=== PATIENT | female | born 1995 | race Caucasian/White ===

== ENCOUNTER 2016-10-15 19:28 | Emergency (ER) | payer BC ==
[2016-10-15 19:41] VITALS: BP 128/91
--- NOTE | 2016-10-15 20:04 | UC ---
Palpitation/Dysrhythmia HP - HPI Summary HPI Summary: complaint of amid intermittent fluttery feeling in her chest for approx 3-4 days feels like she has a ticking in her chest laying down increases the feeling wakes up in the morning and it is gone then starts again throughout the day episodes last for 30 minutes to 3 hours the first day her left arm hurt after she had been holding a baby dur ing the day for several hours-resolved denies shortness of breath, chest pain, nausea, diaphoreis, dizziness denies feeling anxious denies fever or recent URI no new medications been on the same control for many years - History of Current Complaint Chief Complaint: UCGeneralIllness Stated Complaint: CHEST TIGHTNESS/SLIGHT TROUBLE BREATHING Time Seen by Provider: 10/15/16 19:42 Hx Obtained From: Patient Hx Last Menstrual Period: 09/30/16 Character: Fluttering Aggravating Factor(s): Position Alleviating Factor(s): Nothing - Risk Factors Pulmonary Embolism: Oral Contraceptives - Allergy/Home Medications Allergies/Adverse Reactions: Allergies Allergy/AdvReac Type Severity Reaction Status Date / Time No Known Allergies Allergy Verified 03/10/16 12:54 PMH/Surg Hx/FS Hx/Imm Hx Previously Healthy: Yes Endocrine History Of: Denies: Diabetes Cardiovascular History Of: Denies: Hypertension, Pacemaker/ICD Respiratory History Of: Reports: Asthma - SPORTS INDUCED GI/ History Of: Denies: Kidney Stones, Renal Disease - Surgical History Surgical History: Yes Surgery Procedure, Year, and Place: ADENOIDS, BILATERAL KNEE STRUCTURAL DEFECT CORRECTION AND REMOVAL OF SCREW IN LT KNEE -07/23/15 LEFT KNEE REPAIR - Family History Known Family History: Positive: None Negative: Cardiac Disease, Hypertension, Diabetes - Social History Occupation: Student Lives: With Family Alcohol Use: Rare Substance Use Type: None Smoking Status (MU): Never Smoked Tobacco Review of Systems Constitutional: Negative Skin: Negative Eyes: Negative ENT: Negative Respiratory: Negative Cardiovascular: Palpitations Gastrointestinal: Negative Genitourinary: Negative Motor: Negative Neurovascular: Negative Musculoskeletal: Negative Neurological: Negative Psychological: Negative All Other Systems Reviewed And Are Negative: Yes Physical Exam Triage Information Reviewed: Yes Appearance: No Pain Distress, Well-Nourished Vital Signs: Initial Vital Signs Temp 99.1 F 10/15/16 19:35 Pulse 103 10/15/16 19:35 Resp 20 10/15/16 19:35 BP 128/91 10/15/16 19:35 Pulse Ox 100 10/15/16 19:35 Vital Signs Reviewed: Yes Eyes: Positive: Conjunctiva Clear Palpitations Course/Dx - Course Course Of Treatment: exam completed. ECG shows NSR rate 80's. no associated symptoms with palpitations. - Differential Dx/Diagnosis Differential Diagnosis/HQI/PQRI: Panic Disorder - palpitations Provider Diagnoses: palpitations - Physician Notifications Discussed Patient Care With: Dr Kesha Bautista Time Discussed With Above Provider: 20:23 Discharge - Discharge Plan Condition: Stable Disposition: HOME Patient Education Materials: Palpitations (ED) Referrals: No Primary Care Phys,NOPCP [Primary Care Provider] - Additional Instructions: Please review your discharge instructions. You need to call your primary care provider to have a physical and further evaluation of your palpitations If your symptoms do not improve please return to urgent care or emergency room.
== END 2016-10-15 20:34 | disposition home or self-care (01) ==
LOC: UCCORT 19:28
DX: R00.2 Palpitations (principal)
CPT/HCPCS: 93005; 99211; G0463

== ENCOUNTER 2016-12-28 14:35 | Emergency (ER) | payer BC ==
[2016-12-28 15:07] VITALS: BP 117/82
[2016-12-28] MEDS ORDERED: Ketorolac INJ* 60 MG/2 ML VIAL IM ONE (15:19)
--- NOTE | 2016-12-28 15:50 | UC ---
Abdominal Pain Female HPI - HPI Summary HPI Summary: Rlq pain for 3-4 hours has had nausea and vomiting as well - History of Current Complaint Chief Complaint: UCAbdominalPain Stated Complaint: STOMACH PAINS Time Seen by Provider: 12/28/16 15:13 Hx Obtained From: Patient Hx Last Menstrual Period: 12/18/16 ?: No Onset/Duration: Sudden Onset, Lasting Hours, Still Present Timing: Constant Severity Initially: Moderate Severity Currently: Moderate Pain Intensity: 8 Pain Scale Used: 0-10 Numeric Location: Discrete At: RLQ Radiates: No Character: Cramping Aggravating Factor(s): Nothing Alleviating Factor(s): Nothing Associated Signs and Symptoms: Positive: Decreased Appetite, Nausea, Vomiting Allergies/Adverse Reactions: Allergies Allergy/AdvReac Type Severity Reaction Status Date / Time No Known Allergies Allergy Verified 12/28/16 15:07 Home Medications: Home Medications Norethindrone Acet & Eth Estra [Microgestin 1.5/30 1.5-30 mg-Mcg] 1 tab PO BEDTIME 12/28/16 [History Confirmed 12/28/16] PMH/Surg Hx/FS Hx/Imm Hx Previously Healthy: No - also has had ovarian cysts Endocrine History Of: Denies: Diabetes Cardiovascular History Of: Denies: Hypertension, Pacemaker/ICD Respiratory History Of: Reports: Asthma - SPORTS INDUCED GI/ History Of: Denies: Kidney Stones, Renal Disease - Surgical History Surgical History: Yes Surgery Procedure, Year, and Place: ADENOIDS, BILATERAL KNEE STRUCTURAL DEFECT CORRECTION AND REMOVAL OF SCREW IN LT KNEE -07/23/15 LEFT KNEE REPAIR - Family History Known Family History: Positive: None Negative: Cardiac Disease, Hypertension, Diabetes - Social History Occupation: Employed Full-time Lives: With Family Alcohol Use: Occasionally Substance Use Type: None Smoking Status (MU): Never Smoked Tobacco Review of Systems Constitutional: Negative Skin: Negative Eyes: Negative ENT: Negative Respiratory: Negative Cardiovascular: Negative Gastrointestinal: Abdominal Pain - rlq, Vomiting Genitourinary: Negative Motor: Negative Neurovascular: Negative Musculoskeletal: Negative Neurological: Negative Psychological: Negative All Other Systems Reviewed And Are Negative: Yes Physical Exam Triage Information Reviewed: Yes Appearance: Well-Nourished, Ill-Appearing, Pain Distress Vital Signs: Initial Vital Signs Temp 97.7 F 12/28/16 14:56 Pulse 94 12/28/16 14:56 Resp 14 12/28/16 14:56 BP 117/82 12/28/16 14:56 Pulse Ox 100 12/28/16 14:56 Vital Signs Reviewed: Yes Eye Exam: Normal Eyes: Positive: Conjunctiva Clear ENT Exam: Normal ENT: Positive: Normal ENT inspection, TMs normal. Negative: Nasal congestion, Nasal drainage, Tonsillar swelling, Tonsillar exudate, Trismus, Muffled/hoarse voice Dental Exam: Normal Neck exam: Normal Neck: Positive: Supple, Nontender Respiratory Exam: Normal Respiratory: Positive: Chest non-tender, Lungs clear, Normal breath sounds, No respiratory distress, No accessory muscle use Cardiovascular Exam: Normal Cardiovascular: Positive: RRR, No Murmur, Pulses Normal, Brisk Capillary Refill Abdominal Exam: Normal Abdomen Description: Positive: No Organomegaly, Soft, McBurney's Point Tenderness. Negative: CVA Tenderness (R), CVA Tenderness (L) Bowel Sounds: Positive: Present Musculoskeletal Exam: Normal Musculoskeletal: Positive: Strength Intact, ROM Intact, No Edema Neurological Exam: Normal Neurological: Positive: Alert, Muscle Tone Normal Psychological Exam: Normal Skin Exam: Normal Diagnostics - Laboratory Diagnostic Studies Completed/Ordered: urine--- +blood, ketones, uriobili, upreg (-) Abd Pain Female Course/Dx - Course Course Of Treatment: NPO-transfer to [facility] for further care - Differential Dx/Diagnosis Differential Diagnosis: Appendicitis, Ovarian Cyst, Urinary Tract Infection, Other - ovarian torsion Provider Diagnoses: RLQ pain - Physician Notification/Consults Discussed Patient Care With: Jaqueline Johnston PINION SORTER Time Discussed With Above Provider: 15:40 Instructed by Provider To: Transfer Discharge - Discharge Plan Condition: Fair Disposition: AGAINST MEDICAL ADVICE
== END 2016-12-28 15:37 | disposition left against medical advice (07) ==
LOC: UCCORT 14:35
DX: R10.31 Right lower quadrant pain (principal)
CPT/HCPCS: 81003; 84702; 96372; 99212; G0463; J1885

== ENCOUNTER 2017-04-04 13:51 | Emergency (ER) | payer BC ==
[2017-04-04 14:25] VITALS: BP 113/67
--- NOTE | 2017-04-04 14:40 | UC ---
Knee Pain HPI - HPI Summary HPI Summary: 21 YEAR OLD FEMALE WITH A HISTORY OF BILATERAL KNEE DISLOCATION/SUBLUXATION PRESENTS WITH COMPLAINS OF LEFT KNEE PAIN. - History of Current Complaint Chief Complaint: UCLowerExtremity Stated Complaint: LEFT KNEE INJURY Time Seen by Provider: 04/04/17 14:39 Hx Obtained From: Patient Hx Last Menstrual Period: 03/15/17 Onset/Duration: Sudden Onset Severity Initially: Moderate Severity Currently: Moderate Pain Scale Used: 0-10 Numeric - 5 Character: Sharp, Aching Aggravating Factor(s): Movement Alleviating Factor(s): Rest, Position Associated Signs And Symptoms: Positive: Swelling Able to Bear Weight: Yes - Allergies/Home Medications Allergies/Adverse Reactions: Allergies Allergy/AdvReac Type Severity Reaction Status Date / Time No Known Allergies Allergy Verified 04/04/17 14:25 Home Medications: Home Medications NK [No Home Medications Reported] 04/04/17 [History Confirmed 04/04/17] PMH/Surg Hx/FS Hx/Imm Hx Previously Healthy: Yes - Surgical History Surgical History: Yes Surgery Procedure, Year, and Place: ADENOIDS, BILATERAL KNEE STRUCTURAL DEFECT CORRECTION AND REMOVAL OF SCREW IN LT KNEE -07/23/15 LEFT KNEE REPAIR. Appy - Family History Known Family History: Positive: None Negative: Cardiac Disease, Hypertension, Diabetes - Social History Alcohol Use: Occasionally Substance Use Type: None Smoking Status (MU): Never Smoked Tobacco Review of Systems Constitutional: Negative Skin: Negative Eyes: Negative ENT: Negative Respiratory: Negative Cardiovascular: Negative Gastrointestinal: Negative Genitourinary: Negative Motor: Negative Neurovascular: Negative Musculoskeletal: Other: - LEFT KNEE PAIN/SWELLING Neurological: Negative Psychological: Negative All Other Systems Reviewed And Are Negative: Yes Physical Exam Triage Information Reviewed: Yes Vital Signs: Initial Vital Signs Temp 37.0 C 04/04/17 14:20 Pulse 85 04/04/17 14:20 Resp 16 04/04/17 14:20 BP 113/67 04/04/17 14:20 Pulse Ox 100 04/04/17 14:20 Eye Exam: Normal ENT Exam: Normal Dental Exam: Normal Neck exam: Normal Neck: Positive: 1 Respiratory Exam: Normal Cardiovascular Exam: Normal Abdominal Exam: Normal Musculoskeletal: Positive: Other: - LEFT KNEE PAIN/SWELLING Neurological Exam: Normal Psychological Exam: Normal Skin Exam: Normal Knee Pain Course/Dx - Differential Dx/Diagnosis Provider Diagnoses: left knee swelling/pain Discharge - Discharge Plan Condition: Stable Disposition: HOME Patient Education Materials: Knee Pain (ED) Referrals: No Primary Care Phys,NOPCP [Medical Doctor] -
--- NOTE | 2017-04-04 15:20 | RAD ---
HISTORY: Left knee subluxation COMPARISONS: July 14, 2008 VIEWS: 4, Frontal internal rotation, external rotation, outlet, and axillary views FINDINGS: BONE DENSITY: Normal. BONES: There is postsurgical change to the proximal tibia, distal fibula, and to the patella. JOINTS: There is no arthropathy. There is no suprapatellar joint effusion or lipohemarthrosis. ALIGNMENT: There is no dislocation. SOFT TISSUES: Unremarkable. OTHER FINDINGS: None. IMPRESSION: POSTSURGICAL CHANGE. NO ACUTE OSSEOUS INJURY. IF SYMPTOMS PERSIST, RECOMMEND REPEAT IMAGING.
== END 2017-04-04 15:29 | disposition home or self-care (01) ==
LOC: UCCORT 13:51
DX: M25.462 Effusion, left knee (principal)
CPT/HCPCS: 99211; G0463

== ENCOUNTER 2017-05-01 12:15 | Emergency (ER) | payer BC ==
[2017-05-01 15:10] VITALS: BP 121/79
--- NOTE | 2017-05-01 16:25 | UC ---
Throat Pain/Nasal Jude HPI - HPI Summary HPI Summary: 21 female presents to with complaints of sinus pressure, nasal congestion for the past couple of weeks. She thought at first it was allergies however it has seemed to worsen over the past week. She has not taken any medication other than some cold and sinus in the beginning of her symptoms. States she feels she has a lot of congestion she is unable to get out. Nothing recent. States she gets sinus infections all the time. Denies headache, sore throat, ear pain and fever/chills. No other complaints at this time. No PMHx. - History of Current Complaint Chief Complaint: UCRespiratory Stated Complaint: COLD/SINUS Time Seen by Provider: 05/01/17 15:20 Hx Obtained From: Patient Hx Last Menstrual Period: 04/19/17 Onset/Duration: Sudden Onset, Lasting Weeks, Still Present, Worse Since Severity: Moderate Pain Intensity: 1 Pain Scale Used: 0-10 Numeric Cough: Nonproductive - intermittent and rare Associated Signs & Symptoms: Positive: Sinus Discomfort, Nasal Discharge Related History: Seasonal Allergies - Allergies/Home Medications Allergies/Adverse Reactions: Allergies Allergy/AdvReac Type Severity Reaction Status Date / Time No Known Allergies Allergy Verified 05/01/17 15:04 PMH/Surg Hx/FS Hx/Imm Hx - Additional Past Medical History Additional PMH: Denies DM, HTN. Admits to exercise induced asthma - Surgical History Surgical History: Yes Surgery Procedure, Year, and Place: ADENOIDS, BILATERAL KNEE STRUCTURAL DEFECT CORRECTION AND REMOVAL OF SCREW IN LT KNEE -07/23/15 LEFT KNEE REPAIR. Appy - Family History Known Family History: Positive: None Negative: Cardiac Disease, Hypertension, Diabetes - Social History Alcohol Use: Occasionally Substance Use Type: None Smoking Status (MU): Never Smoked Tobacco Review of Systems Constitutional: Negative ENT: Nasal Discharge, Sinus Congestion, Sinus Pain/Tenderness Respiratory: Negative Cardiovascular: Negative Gastrointestinal: Negative Neurological: Negative All Other Systems Reviewed And Are Negative: Yes Physical Exam Triage Information Reviewed: Yes Appearance: Well-Appearing, No Pain Distress, Well-Nourished Vital Signs: Initial Vital Signs Temp 98.7 F 05/01/17 15:04 Pulse 78 05/01/17 15:04 Resp 18 05/01/17 15:04 BP 121/79 05/01/17 15:04 Pulse Ox 100 05/01/17 15:04 Vital Signs Reviewed: Yes Eyes: Positive: Conjunctiva Clear ENT: Positive: Normal ENT inspection, Hearing grossly normal, Pharynx normal, Nasal congestion, TMs normal. Negative: Tonsillar swelling, Tonsillar exudate Dental: Positive: Percussion Tenderness @ - maxillary. Negative: Cervical Lymphadenopathy Neck: Positive: Supple, Nontender Respiratory: Positive: Chest non-tender, Lungs clear, Normal breath sounds, No respiratory distress, No accessory muscle use. Negative: Rhonchi, Stridor, Wheezing Cardiovascular: Positive: RRR, No Murmur, Pulses Normal, Brisk Capillary Refill Musculoskeletal: Positive: Strength Intact, ROM Intact Neurological: Positive: Alert Skin Exam: Normal Throat Pain/Nasal Course/Dx - Course Course Of Treatment: due to patient's complaint of symptoms and length of symptoms will treat symptomatically at first. told to hold off on antibiotic for atleast a week and see if other medication helps first. patient agrees and understands. competent. fluids, rest, hot compresses/showers, ibuprofen. flonase , saline rinses and claritin. aware of worsening signs and symptoms to watch out for. Follow up PCP. - Differential Dx/Diagnosis Differential Diagnosis/HQI/PQRI: Influenza, Laryngitis, Otitis Media, Pharyngitis, Sinusitis, URI Provider Diagnoses: acute sinusitis Discharge - Discharge Plan Condition: Stable Disposition: HOME Patient Education Materials: Sinusitis (ED), Warm Compress or Soak (ED) Referrals: Nael Cruz MD [Primary Care Provider] - Additional Instructions: Use prescribed flonase as directed while symptoms last. Recommend using saline rinses or nasal sprays. Take claritin or zyrtec over the counter for the next 7-14 days. Gargle with salt water. Increase fluid intake. Recommend taking mucinex and using hot compresses/ taking hot showers. Ibuprofen for headache and discomfort. If symptoms worsen or do not improve try taking antibiotic prescribed to you as directed. Give it 3 -5 days with symptomatic measures before starting antibiotic. Take with food. Follow up PCP. Return if symptoms worsen or do not improve in 2-3 weeks.
== END 2017-05-01 16:32 | disposition home or self-care (01) ==
LOC: UCCORT 12:15
DX: J01.90 Acute sinusitis, unspecified (principal)
CPT/HCPCS: 99212; G0463

== ENCOUNTER 2017-07-09 11:27 | Emergency (ER) | payer BC ==
[2017-07-09 13:05] VITALS: BP 120/69
--- NOTE | 2017-07-09 14:38 | UC ---
Throat Pain/Nasal Jude HPI - HPI Summary HPI Summary: SORE THROAT, SWOLLEN TONSILS, BODY ACHES, HEADACHE, CHILLS FOR FOUR DAYS - History of Current Complaint Chief Complaint: UCGeneralIllness Stated Complaint: ST Time Seen by Provider: 07/09/17 13:11 Hx Obtained From: Patient Hx Last Menstrual Period: ~06/12/17 Onset/Duration: Gradual Onset, Lasting Days Severity: Moderate Pain Intensity: 8 Pain Scale Used: 0-10 Numeric Cough: None Associated Signs & Symptoms: Positive: Hoarseness, Fever - Epiglottits Risk Factors Epiglottis Risk Factors: Negative - Allergies/Home Medications Allergies/Adverse Reactions: Allergies Allergy/AdvReac Type Severity Reaction Status Date / Time No Known Allergies Allergy Verified 07/09/17 13:01 PMH/Surg Hx/FS Hx/Imm Hx Previously Healthy: Yes - Surgical History Surgical History: Yes Surgery Procedure, Year, and Place: ADENOIDS, BILATERAL KNEE STRUCTURAL DEFECT CORRECTION AND REMOVAL OF SCREW IN LT KNEE -07/23/15 LEFT KNEE REPAIR. APPENDECTOMY - 01/07/17 - Family History Known Family History: Positive: None - Pt denies FMHX Negative: Cardiac Disease, Hypertension, Diabetes - Social History Occupation: Employed Full-time Lives: With Family Alcohol Use: Occasionally Substance Use Type: None Smoking Status (MU): Never Smoked Tobacco - Immunization History Most Recent Influenza Vaccination: Not the Season Vaccination Up to Date: Yes Review of Systems Constitutional: Chills Skin: Negative Eyes: Negative ENT: Sore Throat Respiratory: Negative Cardiovascular: Negative Gastrointestinal: Negative Genitourinary: Negative Motor: Negative Neurovascular: Negative Musculoskeletal: Myalgia Neurological: Headache Psychological: Negative Is Patient Immunocompromised?: No All Other Systems Reviewed And Are Negative: Yes Physical Exam Triage Information Reviewed: Yes Appearance: Well-Appearing, No Pain Distress, Well-Nourished Vital Signs: Initial Vital Signs Temp 98.8 F 07/09/17 12:59 Pulse 96 07/09/17 12:59 Resp 16 07/09/17 12:59 BP 120/69 07/09/17 12:59 Pulse Ox 100 07/09/17 12:59 Vital Signs Reviewed: Yes Eye Exam: Normal ENT: Positive: Pharyngeal erythema, TM dull, Tonsillar swelling, Tonsillar exudate Dental Exam: Normal Neck exam: Normal Respiratory Exam: Normal Respiratory: Positive: Chest non-tender, Lungs clear, Normal breath sounds, No respiratory distress, No accessory muscle use Cardiovascular Exam: Normal Cardiovascular: Positive: RRR, No Murmur, Pulses Normal, Brisk Capillary Refill Abdominal Exam: Normal Abdomen Description: Positive: Nontender, No Organomegaly Musculoskeletal Exam: Normal Neurological Exam: Normal Psychological Exam: Normal Skin Exam: Normal Throat Pain/Nasal Course/Dx - Differential Dx/Diagnosis Differential Diagnosis/HQI/PQRI: Pharyngitis, Sinusitis, Tonsillitis, URI Provider Diagnoses: STREP TONSILITIS Discharge - Discharge Plan Condition: Stable Disposition: HOME Prescriptions: Amoxicillin PO (*) [Amoxicillin 875 MG (*)] 875 mg PO BID #20 tab Patient Education Materials: Strep Throat (ED) Forms: *Work Release Referrals: [facility] PHYSICIAN REFERRAL [Outside] No Primary Care Phys,NOPCP [Primary Care Provider] -
== END 2017-07-09 14:04 | disposition home or self-care (01) ==
LOC: UCCORT 11:27
DX: J03.00 Acute streptococcal tonsillitis, unspecified (principal)
CPT/HCPCS: 87651; 99212; G0463

== ENCOUNTER 2017-07-11 13:39 | Emergency (ER) | payer BC ==
[2017-07-11 14:39] VITALS: BP 127/75
--- NOTE | 2017-07-11 15:09 | UC ---
Pediatric Resp HPI - HPI Summary HPI Summary: dx with strep on wednesday and placed on amoxicillin - took her 2 doses wed and wednesday and today in the morning. now having c/p midsternal with radiation down both arm. throat feeling better but face flushed and very uncomfortable - stop abx today - History Of Current Complaint Chief Complaint: UCGeneralIllness Stated Complaint: CHEST PAIN, SOB Time Seen by Provider: 07/11/17 15:03 Hx Obtained From: Patient Onset/Duration: Sudden Onset Timing: Constant Severity Initially: Moderate Severity Currently: Moderate Location: Chest Aggravating Factor(s): URI Alleviating Factor(s): Antibiotics Associated Signs And Symptoms: Chest Pain, Sore Throat - Risk Factor(s) Status Asthmaticus Risk Factor(s): Negative Severe RSV Risk Factor(s): Negative Foreign Body Aspiration Risk Factor(s): Negative - Allergies/Home Medications Allergies/Adverse Reactions: Allergies Allergy/AdvReac Type Severity Reaction Status Date / Time Amoxicillin Allergy Severe esophageal Verified 07/11/17 16:29 stricture Past Medical History Previously Healthy: Yes Respiratory History: Yes: Asthma - SPORTS INDUCED Chronic Illness History: No: Diabetes Review Of Systems Eyes: Negative ENT: Throat Pain Cardiovascular: Other - chest pain with radiation down both arms Respiratory: Negative Gastrointestinal: Negative Genitourinary: Negative Musculoskeletal: Negative Skin: Negative Neurological: Negative Psychological: Negative All Other Systems Reviewed And Are Negative: Yes Physical Exam Triage Information Reviewed: Yes Vital Signs: Initial Vital Signs Temp 98 F 07/11/17 14:34 Pulse 97 07/11/17 14:34 Resp 18 07/11/17 14:34 BP 127/75 07/11/17 14:34 Pulse Ox 100 07/11/17 14:34 Appearance: Pain Distress Eyes: Positive: Normal ENT: Positive: Pharyngeal erythema Neck: Positive: Supple Respiratory: Positive: Chest non-tender, Lungs clear, Normal breath sounds Cardiovascular: Positive: Normal Abdomen Description: Positive: Nontender Bowel Sounds: Present Musculoskeletal: Positive: Normal Neurological: Positive: Normal Psychological: Positive: Normal Pediatric Resp Course/Dx - Course Course Of Treatment: EKG ordered - NSR HR 92 - negative. chest xray ordered - reading not back yet pt doesnt want to wait will call her at home with results - ok with this - called pt at home to let her know cxray was negative. stop amoxicillin start ryanpasylwia discussed use - take full course. increase fluid intake daily to prevent dehydration. ibuprofen tabs 600mg po every 6 hours prn pain/temp. f/u pcp in 1 week if symptoms not resolving - Differential Dx/Diagnosis Provider Diagnoses: esophageal stricture. strep throat Discharge - Discharge Plan Condition: Stable Disposition: HOME Prescriptions: Azithromycin TAB* [Zithromax TAB (Z-DONNA) 250 mg #6 tabs] 250 mg PO DAILY 5 Days #6 tab Patient Education Materials: Strep Throat (ED), Esophageal Stricture (ED) Referrals: No Primary Care Phys,NOPCP [Primary Care Provider] - [facility] PHYSICIAN REFERRAL [Outside] - 1 Week
--- NOTE | 2017-07-11 16:29 | RAD ---
INDICATION: Chest pain and shortness of breath COMPARISON: Most recent comparison chest x-ray September 24, 2008 TECHNIQUE: PA and lateral views of the chest were obtained. FINDINGS: The heart and mediastinum are normal in size and contour. The lungs are grossly clear. There is no evidence of large pleural effusion. Visualized bones are normal for the patient's age. There is no radiographic evidence of free air beneath the diaphragm IMPRESSION: No radiographic evidence of acute cardiopulmonary disease.
== END 2017-07-11 16:26 | disposition home or self-care (01) ==
LOC: UCCORT 13:39
DX: K22.2 Esophageal obstruction (principal); J02.0 Streptococcal pharyngitis; J45.990 Exercise induced bronchospasm; Z88.1 Allergy status to other antibiotic agents
CPT/HCPCS: 71020; 93005; 99212; G0463

== ENCOUNTER 2017-09-09 15:51 | Emergency (ER) | payer BC ==
[2017-09-09 18:26] VITALS: BP 120/76
--- NOTE | 2017-09-09 18:47 | UC ---
HPI Febrile Illness - HPI Summary HPI Summary: 22 year old female with cough. ONSET TWO DAYS AGO WITH SINUS CONGESTION, BODY ACHES.DRY COUGH.HEADACHE. NO SORE THROAT. FELT FEVERISH TWO DAYS AGO. NO N/V/D [ End ] - History of Current Complaint Chief Complaint: UCRespiratory Time Seen by Provider: 09/09/17 18:30 Hx Obtained From: Patient Hx Last Menstrual Period: 09/03/17 Timing: Constant Initial Severity: Moderate Current Severity: Moderate Pain Intensity: 5 - Allergy/Home Medications Allergies/Adverse Reactions: Allergies Allergy/AdvReac Type Severity Reaction Status Date / Time MS Amoxicillin [Amoxicillin] Allergy Severe esophageal Verified 09/09/17 18:19 stricture Home Medications: Home Medications Ibuprofen TAB* [Advil TAB*] 400 mg PO Q6H PRN 09/09/17 [History Confirmed ] Norgestimate-Ethinyl Estradiol [Trinessa 0.18/0.215/0.25 mg-35 Mcg] 1 tab PO DAILY 09/09/17 [History Confirmed 09/09/17] PMH/Surg Hx/FS Hx/Imm Hx Previously Healthy: Yes - Surgical History Surgical History: Yes Surgery Procedure, Year, and Place: ADENOIDS, BILATERAL KNEE STRUCTURAL DEFECT CORRECTION AND REMOVAL OF SCREW IN LT KNEE -07/23/15 LEFT KNEE REPAIR. APPENDECTOMY - 01/07/17. LEFT KNEE SURGERY REPAIR-Jul - Family History Known Family History: Positive: None - Pt denies FMHX Negative: Cardiac Disease, Hypertension, Diabetes - Social History Occupation: Employed Full-time, Student Lives: With Family Alcohol Use: Rare Substance Use Type: None Smoking Status (MU): Never Smoked Tobacco - Immunization History Most Recent Influenza Vaccination: Not the Season Vaccination Up to Date: Yes Review of Systems Constitutional: Fever, Chills, Fatigue ENT: Sore Throat, Nasal Discharge Respiratory: Cough Musculoskeletal: Myalgia Neurological: Headache Is Patient Immunocompromised?: No All Other Systems Reviewed And Are Negative: Yes Physical Exam Triage Information Reviewed: Yes Appearance: Well-Appearing, No Pain Distress, Well-Nourished Vital Signs: Initial Vital Signs Temp 98 F 09/09/17 18:20 Pulse 85 09/09/17 18:20 Resp 20 09/09/17 18:20 BP 120/76 09/09/17 18:20 Pulse Ox 100 09/09/17 18:20 Vital Signs Reviewed: Yes Eye Exam: Normal ENT Exam: Normal ENT: Positive: Pharynx normal, Nasal congestion, TMs normal Dental Exam: Normal Neck exam: Normal Neck: Positive: 1 Respiratory Exam: Normal Cardiovascular Exam: Normal Musculoskeletal Exam: Normal Neurological Exam: Normal Psychological Exam: Normal Skin Exam: Normal Course/Dx - Course Course Of Treatment: neg flu. still viral like - Diagnoses Clinic Provider Diagnoses: URI Discharge - Discharge Plan Condition: Good Disposition: HOME Prescriptions: Benzonatate [TESSALON 200 MG CAP] 200 mg PO TID PRN #20 cap PRN Reason: Cough Patient Education Materials: Upper Respiratory Infection (ED) Forms: *Work Release Referrals: Nael Cruz MD [Primary Care Provider] - 4 Days Additional Instructions: You had a negative flu test today .
== END 2017-09-09 19:15 | disposition home or self-care (01) ==
LOC: UCCORT 15:51
DX: J06.9 Acute upper respiratory infection, unspecified (principal)
CPT/HCPCS: 87502; 99212; G0463

== ENCOUNTER 2017-12-19 18:00 | Emergency (ER) | payer OTHER ==
[2017-12-19 18:38] VITALS: BP 130/85
--- NOTE | 2017-12-19 19:03 | UC ---
Hand/Wrist HPI - HPI Summary HPI Summary: Punched concrete last night. Seen at the ER. Negative Xray. Feels like pinky is sticking. - History Of Current Complaint Chief Complaint: UCGeneralIllness Stated Complaint: RIGHT HAND INJURY Time Seen by Provider: 12/19/17 18:56 Hx Last Menstrual Period: 12/07/17 Pain Intensity: 8 Character Of Pain: Aching, Burning Aggravating Factor(s): Movement, Lifting, Flexion Alleviating Factor(s): Nothing Associated Signs And Symptoms: Positive: Bruising, Numbness/Tingling Related History: Dominant Hand Right - Risk Factors Compartment Syndrome Risk Factors: Paresthesias - Allergies/Home Medications Allergies/Adverse Reactions: Allergies Allergy/AdvReac Type Severity Reaction Status Date / Time amoxicillin Allergy Anaphylatic Verified 12/19/17 18:31 Shock PMH/Surg Hx/FS Hx/Imm Hx Respiratory History: Asthma - Surgical History Surgical History: Yes Surgery Procedure, Year, and Place: ADENOIDS, BILATERAL KNEE STRUCTURAL DEFECT CORRECTION AND REMOVAL OF SCREW IN LT KNEE -07/23/15 LEFT KNEE REPAIR. APPENDECTOMY - 01/07/17. LEFT KNEE SURGERY REPAIR-Jul - Family History Known Family History: Negative: Cardiac Disease, Hypertension, Diabetes - Social History Occupation: Employed Full-time Lives: Dormitory/Roommates Alcohol Use: Occasionally Substance Use Type: None Smoking Status (MU): Never Smoked Tobacco Have You Smoked in the Last Year: No - Immunization History Most Recent Influenza Vaccination: Not the 2016/2017 Season Vaccination Up to Date: Yes Review of Systems Skin: Bruising Musculoskeletal: Arthralgia Is Patient Immunocompromised?: No All Other Systems Reviewed And Are Negative: Yes Physical Exam Triage Information Reviewed: Yes Appearance: Well-Appearing, Well-Nourished, Pain Distress - moderate Vital Signs: Initial Vital Signs Temp 98 F 12/19/17 18:32 Pulse 92 12/19/17 18:32 Resp 16 12/19/17 18:32 BP 130/85 12/19/17 18:32 Pulse Ox 100 12/19/17 18:32 Vital Signs Reviewed: Yes Eyes: Positive: Conjunctiva Clear Neck exam: Normal Respiratory Exam: Normal Cardiovascular Exam: Normal Musculoskeletal: Positive: 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 Neurological: Positive: Other: - numbness to sharp in the medial dorsal and ventral right hand. Psychological Exam: Normal Skin: Positive: Other - bruising over the medial right hand from the 3rd finger down. Hand/Wrist Course/Dx - Differential Dx/Diagnosis Differential Diagnosis/HQI/PQRI: Contusion, Fracture, Sprain, Strain Provider Diagnoses: Nerve contusion right hand, neuritis. Contusion right hand. Discharge - Sign-Out/Discharge Documenting (check all that apply): Discharge/Admit/Transfer - Discharge Plan Condition: Stable Disposition: HOME Prescriptions: Gabapentin CAP(*) [Neurontin 300 CAP(*)] 300 mg PO TID PRN #30 cap PRN Reason: Nerve pain Hydrocodone/Acetaminophen [Hydrocodone/Acetaminophen 5-325 mg] 1 tab PO QID PRN #20 tab MDD 4 PRN Reason: Pain - Moderate To Severe Patient Education Materials: Paresthesia (ED), Hydrocodone/Acetaminophen (By mouth), Gabapentin (By mouth) Referrals: Nael Cruz MD [Primary Care Provider] - Chayo Jacobo MD [Medical Doctor] - 1 Day (follow up for nerve injury in the right hand.) - Billing Disposition and Condition Condition: STABLE Disposition: HOME
[2017-12-19] MEDS ORDERED: HYDROcodone/ACETAMIN 5-325 MG* 1 TAB PO ONE (19:27)
== END 2017-12-19 19:39 | disposition home or self-care (01) ==
LOC: UCCORT 18:00
DX: S64.91XA Injury of unspecified nerve at wrist and hand level of right arm, initial encounter (principal); S60.221A Contusion of right hand, initial encounter; W22.8XXA Striking against or struck by other objects, initial encounter; Y92.9 Unspecified place or not applicable; Z88.3 Allergy status to other anti-infective agents
CPT/HCPCS: 99212; G0463

== ENCOUNTER 2018-02-28 14:59 | Emergency (ER) | payer OTHER ==
[2018-02-28 15:30] VITALS: BP 129/76
--- NOTE | 2018-02-28 15:55 | UC ---
Knee Pain HPI - HPI Summary HPI Summary: has a history of knee dislocations-and surgeries to tighten the knee. this morning she got out of bed and had pain left knee and felt like it dislocated and has been painful all day--getting some relief with ibuprofen - History of Current Complaint Chief Complaint: UCLowerExtremity Stated Complaint: LEFT KNEE INJURY Time Seen by Provider: 02/28/18 15:29 Hx Obtained From: Patient Hx Last Menstrual Period: 02/19/18 ?: No Onset/Duration: Sudden Onset Severity Initially: Severe Severity Currently: Moderate Location Of Injury: left knee Pain Intensity: 8 Pain Scale Used: 0-10 Numeric Character: Aching, Throbbing Aggravating Factor(s): Movement, Weight Bearing Alleviating Factor(s): OTC Meds - ibuprofen Associated Signs And Symptoms: Positive: Swelling Able to Bear Weight: Yes - Allergies/Home Medications Allergies/Adverse Reactions: Allergies Allergy/AdvReac Type Severity Reaction Status Date / Time amoxicillin Allergy Anaphylatic Verified 12/19/17 18:31 Shock Home Medications: Home Medications Ibuprofen TAB* [Motrin TAB* 800 MG] 800 mg PO Q6H PRN 02/28/18 [History Confirmed 02/28/18] PMH/Surg Hx/FS Hx/Imm Hx Previously Healthy: Yes - Surgical History Surgical History: Yes Surgery Procedure, Year, and Place: ADENOIDS, BILATERAL KNEE STRUCTURAL DEFECT CORRECTION AND REMOVAL OF SCREW IN LT KNEE -07/23/15 LEFT KNEE REPAIR. APPENDECTOMY - 01/07/17. LEFT KNEE SURGERY REPAIR-Jul - Family History Known Family History: Positive: None - Pt denies FMHX Negative: Cardiac Disease, Hypertension, Diabetes - Social History Occupation: Employed Full-time Lives: With Family Alcohol Use: Occasionally Substance Use Type: None Smoking Status (MU): Never Smoked Tobacco Have You Smoked in the Last Year: No - Immunization History Most Recent Influenza Vaccination: Not the 2016/2017 Season Vaccination Up to Date: Yes Review of Systems Constitutional: Negative Skin: Negative Eyes: Negative ENT: Negative Respiratory: Negative Cardiovascular: Negative Gastrointestinal: Negative Genitourinary: Negative Motor: Negative Neurovascular: Negative Musculoskeletal: Arthralgia - left knee pain Neurological: Negative Psychological: Negative Is Patient Immunocompromised?: No All Other Systems Reviewed And Are Negative: Yes Physical Exam Triage Information Reviewed: Yes Appearance: Well-Appearing, Well-Nourished, Pain Distress - mild Vital Signs: Initial Vital Signs Temp 98.1 F 02/28/18 15:21 Pulse 85 02/28/18 15:21 Resp 14 02/28/18 15:21 BP 129/76 02/28/18 15:21 Pulse Ox 100 02/28/18 15:21 Vital Signs Reviewed: Yes Eye Exam: Normal Eyes: Positive: Conjunctiva Clear ENT Exam: Normal ENT: Positive: Normal ENT inspection, Hearing grossly normal. Negative: Trismus , Muffled voice, Hoarse voice Dental Exam: Normal Neck exam: Normal Neck: Positive: Supple, Nontender Respiratory Exam: Normal Respiratory: Positive: Chest non-tender, No respiratory distress, No accessory muscle use Cardiovascular Exam: Normal Cardiovascular: Positive: RRR, Pulses Normal, Brisk Capillary Refill Musculoskeletal Exam: Other Musculoskeletal: Positive: ROM Intact, Strength Limited @ - left knee, Edema @ - left knee Neurological Exam: Normal Neurological: Positive: Alert Psychological Exam: Normal Skin Exam: Normal Diagnostics - Radiology No standard instances Xray Interpretation: Positive (See Comments) - Patient Name: MARK GUERRERO Medical Record#: [id number] Ordering Physician: Jodi Pandey NP Acct.#: [id number] : 1995 Age: 22 Sex: F Location: [facility] Exam Date: 02/28/181531 ADM Status: [facility] ER Order Information: KNEE LEFT 4+ VWS Accession Number: [id number] CPT: 20625 HISTORY: pain, history of dislocation COMPARISONS: April 04, 2017 VIEWS: 4, Frontal, lateral, axial, and oblique views of the left knee FINDINGS: BONE DENSITY: Normal. BONES: There is postsurgical change to the patella, distal femur, proximal tibia. JOINTS: There is mild medial and lateral compartment joint space narrowing. There is no suprapatellar joint effusion or lipohemarthrosis. ALIGNMENT: There is no dislocation. SOFT TISSUES : Unremarkable. OTHER FINDINGS: None. IMPRESSION: POST SURGICAL CHANGE. NO ACUTE OSSEOUS INJURY. IF SYMPTOMS PERSIST, RECOMMEND REPEAT IMAGING. <Electronically signed by Chris Ames MD in [place]> 02/28/18 1605 Dictated By: Chris Ames MD Dictated Date/Time: 02/28/18 1605 Transcribed Date/Time: 02/28/18 1604 Copy to: CC:Nael Cruz MD; Jodi Pandey [employer]AT [employer] PLANT UTILITY SUPERVISOR; Samantha Landin MD Imaging - [facility] Imaging - [facility] Imaging - [facility] [id number] [place] [id number] ph ([phone]) ph ([phone]) ph ([phone]) This report is only to be considered final once signed by the Provider(s) as displayed in the "<Electronically Signed by >" field (s). Absence of a signature indicates the report is in a draft status and still needs to be finalized. In the event this document was created by someone other than the signing Provider, the individual initiating the document will be listed in the "Entered by:" or "Dictated by:" collazo. 1 of 1 Radiology Interpretation Completed By: ED Physician Knee Pain Course/Dx - Course Course Of Treatment: R.I.C.E, hinged knee immoblizer, pain med, follow with surgeon in [place] tomorrow to arrange follow up care - Differential Dx/Diagnosis Provider Diagnoses: acute on chronic left knee pain and instability Discharge - Sign-Out/Discharge Documenting (check all that apply): Patient Departure - Discharge Plan Condition: Stable Disposition: HOME Prescriptions: Hydrocodone/Acetaminophen [Hydrocodone-Acetamin 5-325 mg] 1 each PO Q6H PRN #12 tablet MDD 4 PRN Reason: pain Patient Education Materials: Swollen Knee Joint (ED), Knee Pain (ED), Knee Dislocation (ED), R.I.C.E. Treatment (ED) Referrals: Nael rCuz MD [Primary Care Provider] - Additional Instructions: call your surgeon in [place] for follow up call tomorrow - Billing Disposition and Condition Condition: STABLE Disposition: Home
--- NOTE | 2018-02-28 16:08 | RAD ---
HISTORY: pain, history of dislocation COMPARISONS: April 04, 2017 VIEWS: 4, Frontal, lateral, axial, and oblique views of the left knee FINDINGS: BONE DENSITY: Normal. BONES: There is postsurgical change to the patella, distal femur, proximal tibia. JOINTS: There is mild medial and lateral compartment joint space narrowing. There is no suprapatellar joint effusion or lipohemarthrosis. ALIGNMENT: There is no dislocation. SOFT TISSUES: Unremarkable. OTHER FINDINGS: None. IMPRESSION: POST SURGICAL CHANGE. NO ACUTE OSSEOUS INJURY. IF SYMPTOMS PERSIST, RECOMMEND REPEAT IMAGING.
== END 2018-02-28 16:32 | disposition home or self-care (01) ==
LOC: UCCORT 14:59
DX: M25.562 Pain in left knee (principal); G89.29 Other chronic pain; M23.52 Chronic instability of knee, left knee; Z88.0 Allergy status to penicillin
CPT/HCPCS: 99212; G0463

== ENCOUNTER 2018-04-06 18:33 | Emergency (ER) | payer OTHER ==
[2018-04-06 20:27] VITALS: BP 121/82
[2018-04-06] MEDS ORDERED: Ciprofloxacin TAB* 500 MG PO ONE (20:49)
[2018-04-06] MEDS ORDERED: Clindamycin CAP* 150 MG PO ONE (20:57)
--- NOTE | 2018-04-08 10:49 | UC ---
Discharge - Sign-Out/Discharge Documenting (check all that apply): Post-Discharge Follow Up All imaging exams completed and their final reports reviewed: No Studies - Discharge Plan Condition: Stable Disposition: HOME Prescriptions: Clindamycin Cap(NF) [Clindamycin Cap 300 mg Cap(NF)] 300 mg PO QID 7 Days #28 cap Patient Education Materials: Cellulitis (DC) Referrals: Nael Cruz MD [Primary Care Provider] - Galindo Downs DPM [Doctor of Podiatric Medicine] - Dion Harden DPM [Doctor of Podiatric Medicine] - Kesha France DPM [Doctor of Podiatric Medicine] - Additional Instructions: PLEASE FINISH FULL COURSE OF ANTIBIOTIC PLEASE MAKE AN APPOINTMENT TO BE SEEN BY A FURNACE HAND OR PRIMARY CARE DOCTOR WITHIN 1 WEEK PLEASE REPORT TO ER FOR ANY WORSENING OR CONCERNING SYMPTOMS - Billing Disposition and Condition Condition: STABLE Disposition: Home
--- NOTE | 2018-05-01 07:20 | UC ---
General HPI - HPI Summary HPI Summary: 22F no pmh p/w L foot pain duration approx 2-3 weeks under ball of left foot due to a wooden splinter gradually worsening, not associated with any fever. Reports mild redness and tenderness while walking. Mild discomfort while walking, no remitting factors. no medications taken at home. - History of Current Complaint Chief Complaint: UCForeignBody Stated Complaint: LEFT FOOT FOREIGN BODY Time Seen by Provider: 04/06/18 20:36 Hx Last Menstrual Period: 03/19/18 Pain Intensity: 6 - Allergy/Home Medications Allergies/Adverse Reactions: Allergies Allergy/AdvReac Type Severity Reaction Status Date / Time amoxicillin Allergy Anaphylatic Verified 04/10/18 16:38 Shock Home Medications: Home Medications Multivitamin [Multivitamins] 1 cap PO DAILY 04/06/18 [History Confirmed 04/06/18 ] PMH/Surg Hx/FS Hx/Imm Hx - Additional Past Medical History Additional PMH: no hx of DM, denies any PMH Previously Healthy: Yes - Surgical History Surgical History: Yes Surgery Procedure, Year, and Place: ADENOIDS, BILATERAL KNEE. STRUCTURAL DEFECT CORRECTION left knee. REMOVAL OF SCREW IN LT KNEE -07/23/15. LEFT KNEE REPAIR. APPENDECTOMY - 01/07/17. LEFT KNEE SURGERY REPAIR-Jul - Family History Known Family History: Positive: None - Pt denies FMHX Negative: Cardiac Disease, Hypertension, Diabetes - Social History Alcohol Use: Occasionally Substance Use Type: None Smoking Status (MU): Never Smoked Tobacco Have You Smoked in the Last Year: No - Immunization History Most Recent Influenza Vaccination: Not the 2016/2017 Season Vaccination Up to Date: Yes Review of Systems Constitutional: Negative, Other Skin: Other Eyes: Negative Respiratory: Negative Gastrointestinal: Negative Motor: Negative Neurovascular: Negative Musculoskeletal: Negative Neurological: Negative - Foot pain as described in history of present illness All Other Systems Reviewed And Are Negative: Yes Physical Exam - Summary Physical Exam Summary: Gen: alert, in no acute distress HEENT: EOMI, normoecphalic, atruamatic Neck: supple, no masses CV: Normal s1 s2, no murmurs Resp: normal breath sounds b/l GI: no tenderness, no masses Musculoskeletal: normal ROM all 4 extremities Skin: Small area of redness without induration or edema on the plantar surface of the left foot around the first MTP. No limitation in range of motion. Distal neurovascular exam intact. Psych: appropriate affect, oriented Triage Information Reviewed: Yes Vital Signs: Initial Vital Signs Temp 36.9 C 04/06/18 20:18 Pulse 85 04/06/18 20:18 Resp 18 04/06/18 20:18 BP 121/82 04/06/18 20:18 Pulse Ox 100 04/06/18 20:18 Course/Dx - Course Course Of Treatment: Examined, provided with antibiotics, referred to general expeditor for further evaluation. Splinter not able to be visualized or extracted on today's visit. - Differential Dx - Multi-Symptom Provider Diagnoses: Splinter soft tissue of the left foot Discharge - Sign-Out/Discharge Documenting (check all that apply): Patient Departure All imaging exams completed and their final reports reviewed: No Studies - Discharge Plan Condition: Stable Disposition: HOME Patient Education Materials: Cellulitis (DC) Referrals: Nael Cruz MD [Primary Care Provider] - Galindo Downs DPM [Doctor of Podiatric Medicine] - Dion Harden DPM [Doctor of Podiatric Medicine] - Kesha France DPM [Doctor of Podiatric Medicine] - Additional Instructions: PLEASE FINISH FULL COURSE OF ANTIBIOTIC PLEASE MAKE AN APPOINTMENT TO BE SEEN BY A WAX ROOM SUPERVISOR OR PRIMARY CARE DOCTOR WITHIN 1 WEEK PLEASE REPORT TO ER FOR ANY WORSENING OR CONCERNING SYMPTOMS - Billing Disposition and Condition Condition: STABLE Disposition: Home
== END 2018-04-06 21:10 | disposition home or self-care (01) ==
LOC: UCCORT 18:33
DX: S90.852A Superficial foreign body, left foot, initial encounter (principal); X58.XXXA Exposure to other specified factors, initial encounter; Y93.9 Activity, unspecified; Y92.9 Unspecified place or not applicable; Z88.0 Allergy status to penicillin
CPT/HCPCS: 99212; A9270-GY; G0463

== ENCOUNTER 2018-04-10 15:35 | Emergency (ER) | payer OTHER ==
[2018-04-10 16:44] VITALS: BP 131/79
--- NOTE | 2018-04-10 17:05 | RAD ---
INDICATION: Pain overlying the right fourth and fifth metacarpals after sports injury the previous day COMPARISON: None. TECHNIQUE: 4 views of the right hand were obtained. FINDINGS: The adequately corticated bones are in normal alignment. No significant focal osseous abnormality or fracture is seen. Joint spaces appear maintained. IMPRESSION: Normal right hand radiograph. If the patient's symptoms persist, follow-up imaging is recommended.
--- NOTE | 2018-04-10 17:28 | UC ---
Hand/Wrist HPI - HPI Summary HPI Summary: Tripped on a curb and hit right hand on the ground. - History Of Current Complaint Chief Complaint: UCUpperExtremity Stated Complaint: SP FALL RT HAND INJURY Hx Obtained From: Patient Hx Last Menstrual Period: 03/29/18 ?: No Onset/Duration: Sudden Onset, Lasting Days - 1, Still Present, Worse Since - onset Severity Initially: Mild Severity Currently: Severe Pain Intensity: 8 Character Of Pain: Sharp, Throbbing Aggravating Factor(s): Movement, Twisting, Pulling Alleviating Factor(s): Ice Associated Signs And Symptoms: Positive: Swelling Related History: Dominant Hand Right - Allergies/Home Medications Allergies/Adverse Reactions: Allergies Allergy/AdvReac Type Severity Reaction Status Date / Time amoxicillin Allergy Anaphylatic Verified 04/10/18 16:38 Shock PMH/Surg Hx/FS Hx/Imm Hx Previously Healthy: Yes - Surgical History Surgical History: Yes Surgery Procedure, Year, and Place: ADENOIDS, BILATERAL KNEE. STRUCTURAL DEFECT CORRECTION left knee. REMOVAL OF SCREW IN LT KNEE -07/23/15. LEFT KNEE REPAIR. APPENDECTOMY - 01/07/17. LEFT KNEE SURGERY REPAIR-Jul - Family History Known Family History: Positive: None - Pt denies FMHX Negative: Cardiac Disease, Hypertension, Diabetes - Social History Occupation: Employed Full-time Lives: Dormitory/Roommates Alcohol Use: Occasionally Substance Use Type: None Smoking Status (MU): Never Smoked Tobacco Have You Smoked in the Last Year: No - Immunization History Most Recent Influenza Vaccination: Not the 2016/2017 Season Vaccination Up to Date: Yes Review of Systems Musculoskeletal: Arthralgia - right hand Is Patient Immunocompromised?: No All Other Systems Reviewed And Are Negative: Yes Physical Exam Triage Information Reviewed: Yes Appearance: Well-Appearing, Well-Nourished, Pain Distress - mild Vital Signs: Initial Vital Signs Temp 98.5 F 04/10/18 16:39 Pulse 91 04/10/18 16:39 Resp 18 04/10/18 16:39 BP 131/79 04/10/18 16:39 Pulse Ox 97 04/10/18 16:39 Vital Signs Reviewed: Yes Eyes: Positive: Conjunctiva Clear Neck exam: Normal Respiratory Exam: Normal Cardiovascular Exam: Normal Musculoskeletal: Positive: ROM Limited @ - Right hand flexion Neurological Exam: Normal Psychological Exam: Normal Skin: Positive: Other - erythema and swelling dorsal right hand Diagnostics - Radiology No standard instances Xray Interpretation: No Acute Changes Radiology Interpretation Completed By: Radiologist Hand/Wrist Course/Dx - Differential Dx/Diagnosis Differential Diagnosis/HQI/PQRI: Abrasion, Cellulitis, Contusion, Fracture Provider Diagnoses: Right hand abrasion and contusion. Right hand cellulitis Discharge - Sign-Out/Discharge Documenting (check all that apply): Patient Departure All imaging exams completed and their final reports reviewed: Yes - Discharge Plan Condition: Stable Disposition: HOME Prescriptions: Sulfamethox/Trimethoprim DS* [Bactrim DS 800/160 TAB*] 1 tab PO BID #20 tab Referrals: Nael Cruz MD [Primary Care Provider] - Additional Instructions: IF THE REDNESS AND SWELLING PROGRESS, ESPECIALLY WITH SHAKING CHILLS AND FEVERS , GO TO THE ER IMMEDIATELY - Billing Disposition and Condition Condition: STABLE Disposition: Home Images Hands: 1 - Abrasion 2 - swelling warmth, erythema and bruising.
== END 2018-04-10 17:44 | disposition home or self-care (01) ==
LOC: UCCORT 15:35
DX: S60.511A Abrasion of right hand, initial encounter (principal); L03.113 Cellulitis of right upper limb; W01.0XXA Fall on same level from slipping, tripping and stumbling without subsequent striking against object, initial encounter; Y93.9 Activity, unspecified; Y92.9 Unspecified place or not applicable; Z88.0 Allergy status to penicillin
CPT/HCPCS: 99212; G0463

== ENCOUNTER 2018-05-24 19:22 | Emergency (ER) | payer BC, OTHER ==
--- NOTE | 2018-05-24 19:46 | UC ---
Knee Pain HPI - HPI Summary HPI Summary: 23 yo female presents with left knee pain. She tells me that she has a hx of b/ l knee surgeries and chronic knee pain. Her left knee cap will dislocate from time to time and she has had surgery for this in the past. Hunter pt was getting out of her car and her left patella dislocated laterally and pt heard a pop. Was able to put it back into place, but has continued pain - which is unusual for her. She is concerned she may have fractured something within the knee. She has not seen ortho in over a year because she has relocated for her job and her Orthopedic doctor is now 3 hours away...she is in the process of scheduling an appointment locally. She is ambulatory without assistance, but does have a mild limp. Denies numbness or tingling. - History of Current Complaint Stated Complaint: LFT KNEE COMPLAINT Time Seen by Provider: 05/24/18 19:45 Hx Obtained From: Patient Hx Last Menstrual Period: 03/29/18 Onset/Duration: Sudden Onset Severity Initially: Moderate Severity Currently: Moderate Pain Intensity: 8 Pain Scale Used: 0-10 Numeric - Allergies/Home Medications Allergies/Adverse Reactions: Allergies Allergy/AdvReac Type Severity Reaction Status Date / Time amoxicillin Allergy Anaphylatic Verified 04/10/18 16:38 Shock Home Medications: Home Medications Iud 1 each VAGINAL DAILY 05/24/18 [History] PMH/Surg Hx/FS Hx/Imm Hx - Additional Past Medical History Additional PMH: Chronic knee pain - Surgical History Surgical History: Yes Surgery Procedure, Year, and Place: ADENOIDS, BILATERAL KNEE. STRUCTURAL DEFECT CORRECTION left knee. REMOVAL OF SCREW IN LT KNEE -07/23/15. LEFT KNEE REPAIR. APPENDECTOMY - 01/07/17. LEFT KNEE SURGERY REPAIR-Jul - Family History Known Family History: Positive: None - Pt denies FMHX Negative: Cardiac Disease, Hypertension, Diabetes - Social History Occupation: Employed Full-time Lives: Alone Alcohol Use: Occasionally Substance Use Type: None Smoking Status (MU): Never Smoked Tobacco Have You Smoked in the Last Year: No - Immunization History Most Recent Influenza Vaccination: Not the 2017/2017 Season Vaccination Up to Date: Yes Review of Systems Constitutional: Negative Skin: Negative Respiratory: Negative Cardiovascular: Negative Musculoskeletal: Other: - LEft knee pain Neurological: Negative Psychological: Negative All Other Systems Reviewed And Are Negative: Yes Physical Exam - Summary Physical Exam Summary: GENERAL: NAD. WDWN. No pain distress. SKIN: No rashes, sores, lesions, or open wounds. CHEST: No accessory muscle use. Breathing comfortably and in no distress. CV: . Pulses intact popliteal, PT, and DP. Cap refill <2seconds MSK: LEFT KNEE: Moderate edema about knee. Keeps knee in extended position. FROM , but increased pain with flexion. Strength 5/5. Unable to performed specialized testing due to pain. NEURO: Alert. Sensations intact and symmetric B/L LEs PSYCH: Age appropriate behavior. Triage Information Reviewed: Yes Vital Signs: Vital Signs: Temp Pulse Resp BP Pulse Ox 98.2 F 99 14 124/79 98 05/24/18 19:58 05/24/18 19:58 05/24/18 19:58 05/24/18 19:58 05/24/18 19:58 Vital Signs Reviewed: Yes Knee Pain Course/Dx - Course Course Of Treatment: iSTOP: Reference #: [id number]. XR: No radiologist reading after 1800, therefore wet read by myself is negative for fracture. Pt declined RETA wrap or crutches as she has these and many knee braces at home. She is asking for something for pain to take at bedtime. She has had norco in the past with good pain relief. Will rx for a short supply and she was advised to schedule a f/u with Orthopedics as soon as possible for further evaluation. - Differential Dx/Diagnosis Provider Diagnoses: LEft patellar dislocation Discharge - Sign-Out/Discharge Documenting (check all that apply): Patient Departure All imaging exams completed and their final reports reviewed: No - Discharge Plan Condition: Stable Disposition: HOME Prescriptions: HYDROcodone/ACETAMIN 5-325 MG* [[place] 5-325 TAB*] 1 tab PO Q8H PRN #12 tab MDD 3 PRN Reason: Pain Patient Education Materials: Patellar Dislocation (ED) Forms: *Work Release Referrals: Nael Cruz MD [Primary Care Provider] - Additional Instructions: If you develop a fever, shortness of breath, chest pain, new or worsening symptoms - please call your PCP or go to the ED. 1) Use your at home knee brace and crutches as needed 2) Please schedule a follow up with your Orthopedic doctor as soon as possible for further evaluation - Billing Disposition and Condition Condition: STABLE Disposition: Home - Attestation Statements Provider Attestation: I was available for consult. This patient was seen by the BRYAN. The patient was not presented to, seen by, or examined by me. -Fransico
[2018-05-24 20:04] VITALS: BP 124/79
[2018-05-24] MEDS ORDERED: HYDROcodone/ACETAMIN 5-325 MG* 1 TAB PO ONE (20:45)
--- NOTE | 2018-05-25 07:55 | RAD ---
HISTORY: Pain. Dislocation COMPARISONS: February 28, 2018 VIEWS: 4 , Frontal, lateral, axial, and oblique views of the left knee FINDINGS: BONE DENSITY: Normal. BONES: There is postsurgical change to the distal femur and patella and proximal tibia. There is no displaced fracture. JOINTS: There is no arthropathy. There is no suprapatellar joint effusion or lipohemarthrosis. ALIGNMENT: There is no dislocation. SOFT TISSUES: Unremarkable. OTHER FINDINGS: None. IMPRESSION: POSTSURGICAL CHANGE. NO ACUTE OSSEOUS INJURY. IF SYMPTOMS PERSIST, RECOMMEND REPEAT IMAGING. R0
--- NOTE | 2018-05-25 10:21 | UC ---
- Progress Note Progress Note: Patient Name: MARK GUERRERO Medical Record#: [id number] Ordering Physician: Ron RODRIGUEZ Acct.#: [id number] : 1995 Age: 23 Sex: F Location: [facility] [place] Exam Date: 05/24/181951 ADM Status: [facility] ER Order Information: KNEE LEFT 4+ VWS Accession Number: [id number] CPT: 40156 HISTORY: Pain. Dislocation COMPARISONS: February 28, 2018 VIEWS: 4 , Frontal, lateral, axial, and oblique views of the left knee FINDINGS: BONE DENSITY: Normal. BONES: There is postsurgical change to the distal femur and patella and proximal tibia. There is no displaced fracture. JOINTS: There is no arthropathy. There is no suprapatellar joint effusion or lipohemarthrosis. ALIGNMENT: There is no dislocation. SOFT TISSUES: Unremarkable. OTHER FINDINGS: None. IMPRESSION: POSTSURGICAL CHANGE. NO ACUTE OSSEOUS INJURY. IF SYMPTOMS PERSIST, RECOMMEND REPEAT IMAGING. R0 <Electronically signed by Chris Ames MD in OV> 05/25/18751 Dictated By: Chris Ames MD Dictated Date/Time: 05/25/18751 Transcribed Date/Time: 05/25/18750 Copy to: CC:Nael Cruz MD; Karolina Ferreira MD; Ron RODRIGUEZ Imaging - [facility] Imaging - [facility]gent [facility] [place] [address] [place] [address] ph ([phone]) ph ([phone]) ph ([phone]) This report is only to be considered final once signed by the Provider(s) as displayed in the "<Electronically Signed by >" field (s). Absence of a signature indicates the report is in a draft status and still needs to be finalized. In the event this document was created by someone other than the signing Provider, the individual initiating the document will be listed in the "Entered by:" or "Dictated by:" collazo. 1 of 1 Discharge - Sign-Out/Discharge Documenting (check all that apply): Post-Discharge Follow Up All imaging exams completed and their final reports reviewed: Yes - Discharge Plan Condition: Stable Disposition: HOME Prescriptions: HYDROcodone/ACETAMIN 5-325 MG* [[place] 5-325 TAB*] 1 tab PO Q8H PRN #12 tab MDD 3 PRN Reason: Pain Patient Education Materials: Patellar Dislocation (ED) Forms: *Work Release Referrals: Nael Cruz MD [Primary Care Provider] - Additional Instructions: If you develop a fever, shortness of breath, chest pain, new or worsening symptoms - please call your PCP or go to the ED. 1) Use your at home knee brace and crutches as needed 2) Please schedule a follow up with your Orthopedic doctor as soon as possible for further evaluation - Billing Disposition and Condition Condition: STABLE Disposition: Home
== END 2018-05-24 21:00 | disposition home or self-care (01) ==
LOC: UCCORT 19:22
DX: M22.02 Recurrent dislocation of patella, left knee (principal); M25.562 Pain in left knee; M25.561 Pain in right knee; Z88.1 Allergy status to other antibiotic agents
CPT/HCPCS: 99212; G0463

== ENCOUNTER 2018-08-07 21:04 | Emergency (ER) | payer BC ==
[2018-08-07 21:15] VITALS: BP 137/82
[2018-08-07] MEDS ORDERED: Ketorolac INJ* 60 MG/2 ML VIAL IM ONE (21:30)
--- NOTE | 2018-08-07 21:30 | UC ---
Knee Pain HPI - HPI Summary HPI Summary: Pt presents with c/o left knee pain. Pt states she has chronic knee issues. Pt reports that she slipped and her left knee dislocated ~ 1 hour ago. Pt reports she has had numerous knee surgeries on bilateral knees and is currently under the care of Dr. Case and is scheduled for a CT of her left knee on 08/11/18. Pt has been prescribed narcotics for pain management. Pt is sitting on exam table in no acute distress. Pt walked into clinic and was able to climb on to exam table. - History of Current Complaint Chief Complaint: UCLowerExtremity Stated Complaint: LEFT KNEE INJURY Time Seen by Provider: 08/07/18 21:10 Hx Obtained From: Patient Hx Last Menstrual Period: 03/29/18 ?: No Onset/Duration: Sudden Onset, Still Present Severity Initially: Severe Severity Currently: Severe Pain Intensity: 9 Character: Dull, Aching, Throbbing, Stiffness Aggravating Factor(s): Movement Alleviating Factor(s): Nothing Associated Signs And Symptoms: Positive: Swelling, Tingling - tingling in toes 2 and 3 Able to Bear Weight: Yes - Risk Factors Septic Arthritis Risk Factor: Negative Gout Risk Factor: Negative - Allergies/Home Medications Allergies/Adverse Reactions: Allergies Allergy/AdvReac Type Severity Reaction Status Date / Time amoxicillin Allergy Anaphylatic Verified 08/07/18 21:15 Shock PMH/Surg Hx/FS Hx/Imm Hx Previously Healthy: Yes - Surgical History Surgical History: Yes Surgery Procedure, Year, and Place: ADENOIDS, BILATERAL KNEE. STRUCTURAL DEFECT CORRECTION left knee. REMOVAL OF SCREW IN LT KNEE -07/23/15. LEFT KNEE REPAIR. APPENDECTOMY - 01/07/17. LEFT KNEE SURGERY REPAIR-Jul - Family History Known Family History: Positive: None - Pt denies FMHX Negative: Cardiac Disease, Hypertension, Diabetes - Social History Lives: With Family Alcohol Use: Occasionally Substance Use Type: None Smoking Status (MU): Never Smoked Tobacco Have You Smoked in the Last Year: No - Immunization History Most Recent Influenza Vaccination: Not the 2017/2017 Season Vaccination Up to Date: Yes Review of Systems All Other Systems Reviewed And Are Negative: Yes Constitutional: Positive: Negative Skin: Positive: Negative Eyes: Positive: Negative ENT: Positive: Negative Respiratory: Positive: Negative Cardiovascular: Positive: Negative Gastrointestinal: Positive: Negative Genitourinary: Positive: Negative Motor: Positive: Decreased ROM - left knee Neurovascular: Positive: Negative Musculoskeletal: Positive: Arthralgia, Decreased ROM, Edema Neurological: Positive: Negative Psychological: Positive: Negative Is Patient Immunocompromised?: No Physical Exam Triage Information Reviewed: Yes Appearance: Well-Appearing Vital Signs: Initial Vital Signs Temp 99.2 F 08/07/18 21:11 Pulse 93 08/07/18 21:11 Resp 18 08/07/18 21:11 BP 137/82 08/07/18 21:11 Pulse Ox 100 08/07/18 21:11 Vital Signs Reviewed: Yes Eye Exam: Normal ENT Exam: Normal Dental Exam: Normal Neck exam: Normal Respiratory Exam: Normal Musculoskeletal: Positive: ROM Limited @ - left knee, Other: - pt was able to ambulate with out difficulty, able to get on and jumped off exam table without indication of pain. Neurological Exam: Normal Psychological Exam: Normal Skin Exam: Normal Knee Pain Course/Dx - Differential Dx/Diagnosis Differential Diagnosis/HQI/PQRI: Dislocation, Sprain, Strain Provider Diagnosis: Left knee pain Discharge - Sign-Out/Discharge Documenting (check all that apply): Patient Departure All imaging exams completed and their final reports reviewed: No Studies - Discharge Plan Condition: Stable Disposition: HOME Prescriptions: Ibuprofen TAB* [Motrin TAB* 800 MG] 800 mg PO Q8H PRN #15 tab PRN Reason: Pain Patient Education Materials: Pain Management (ED), Knee Pain (ED), Ice Pack Application (ED) Referrals: Nael Cruz MD [Primary Care Provider] - If Needed Jamie Case MD [Medical Doctor] - As Soon As Possible - Billing Disposition and Condition Condition: STABLE Disposition: Home - Attestation Statements Provider Attestation: Per institutional requirements, I have reviewed the chart, however, I was not consulted specifically or made aware of this patient by the midlevel provider. I did not personally evaluate, interact with , or disposition this patient.
== END 2018-08-07 21:56 | disposition home or self-care (01) ==
LOC: UCCORT 21:04
DX: M25.562 Pain in left knee (principal); Z88.0 Allergy status to penicillin; W18.40XA Slipping, tripping and stumbling without falling, unspecified, initial encounter; Y92.9 Unspecified place or not applicable
CPT/HCPCS: 96372; 99213; G0463; J1885

== ENCOUNTER 2018-10-02 14:20 | Emergency (ER) | payer BC ==
[2018-10-02 15:30] VITALS: BP 131/68
--- NOTE | 2018-10-02 15:36 | UC ---
Lower Extremity/Ankle HPI - HPI Summary HPI Summary: Dropped a computer printer on her foot this afternoon. Pain with walking. - History of Current Complaint Chief Complaint: UCLowerExtremity Stated Complaint: LEFT FOOT INJURY Hx Obtained From: Patient Hx Last Menstrual Period: 03/29/18 ?: No Onset/Duration: Sudden Onset, Lasting Days - 2, Worse Since - yesterday Severity Initially: Mild Severity Currently: Severe Pain Intensity: 8 Aggravating Factor(s): Standing, Ambulation Alleviating Factor(s): Rest, Elevation Able to Bear Weight: Yes - Allergies/Home Medications Allergies/Adverse Reactions: Allergies Allergy/AdvReac Type Severity Reaction Status Date / Time amoxicillin Allergy Anaphylatic Verified 10/02/18 15:30 Shock Home Medications: Home Medications Ibuprofen TAB* [Motrin TAB* 800 MG] 400 mg PO Q8H PRN 10/02/18 [History] PMH/Surg Hx/FS Hx/Imm Hx Previously Healthy: Yes - Surgical History Surgical History: Yes Surgery Procedure, Year, and Place: ADENOIDS, BILATERAL KNEE. STRUCTURAL DEFECT CORRECTION left knee. REMOVAL OF SCREW IN LT KNEE -07/23/15. LEFT KNEE REPAIR. APPENDECTOMY - 01/07/17. LEFT KNEE SURGERY REPAIR-Jul - Family History Known Family History: Positive: None - Pt denies FMHX Negative: Cardiac Disease, Hypertension, Diabetes - Social History Occupation: Employed Full-time Lives: Alone - with a roommate Alcohol Use: Occasionally Substance Use Type: None Smoking Status (MU): Never Smoked Tobacco Have You Smoked in the Last Year: No - Immunization History Most Recent Influenza Vaccination: Not the Season Vaccination Up to Date: Yes Review of Systems All Other Systems Reviewed And Are Negative: Yes Skin: Positive: Bruising Musculoskeletal: Positive: Arthralgia - left foot Is Patient Immunocompromised?: No Physical Exam Triage Information Reviewed: Yes Appearance: Well-Appearing, Well-Nourished, Pain Distress - mild Vital Signs: Initial Vital Signs Temp 98.2 F 10/02/18 15:26 Pulse 91 10/02/18 15:26 Resp 16 10/02/18 15:26 BP 131/68 10/02/18 15:26 Pulse Ox 100 10/02/18 15:26 Vital Signs Reviewed: Yes Eyes: Positive: Conjunctiva Clear ENT: Positive: Pharynx normal, Nasal congestion, TMs normal Neck exam: Normal Respiratory Exam: Normal Cardiovascular Exam: Normal Musculoskeletal: Positive: ROM Limited @ - left mid foot Neurological: Positive: Other: - hyperaesthesia in the dorsal left foot, distal to the contusion. Skin: Positive: Other - bruise over the left dorsal foot Diagnostics - Radiology No standard instances Radiology Interpretation Completed By: ED Physician Summary of Radiographic Findings: Negative Lower Extremity Course/Dx - Differential Dx/Diagnosis Differential Diagnosis/HQI/PQRI: Arthritis, Contusion, Fracture (Closed), Sprain Provider Diagnosis: Contusion of left foot, Neuritis Discharge - Sign-Out/Discharge Documenting (check all that apply): Patient Departure All imaging exams completed and their final reports reviewed: Yes - Discharge Plan Condition: Stable Disposition: HOME Prescriptions: Gabapentin 300 mg PO BID PRN #60 capsule PRN Reason: Pain Patient Education Materials: Foot Contusion (ED) Referrals: Nael Cruz MD [Primary Care Provider] - Additional Instructions: GABAPENTIN: Gabapentin is an anti-seizure medication that is more often used for nerve pain. It helps to stabilize the nerve to stop the pain. Its primary side effect is sedation which will improve over time. Most people will start with only one capsule 1 to 2 hours before bed, but if your pain is more severe you may want to start with one capsule twice a day. Decrease the dose by one capsule a day if there is excessive sedation or it is not working. You can also decrease it to discontinue it if the pain is resolving. - Billing Disposition and Condition Condition: STABLE Disposition: Home
== END 2018-10-02 16:04 | disposition home or self-care (01) ==
LOC: UCCORT 14:20
DX: S90.32XA Contusion of left foot, initial encounter (principal); M79.2 Neuralgia and neuritis, unspecified; Z88.0 Allergy status to penicillin; W20.8XXA Other cause of strike by thrown, projected or falling object, initial encounter; Y92.9 Unspecified place or not applicable
CPT/HCPCS: 99212; G0463